=== PATIENT | female | born 1975 | race Asian ===

== ENCOUNTER 2016-08-25 21:00 | Inpatient (IN) | payer SELFPAY ==
[~2016-08-25] VITALS: Ht 162.6 cm; Wt 62.6 kg
[2016-08-25] MEDS ORDERED: LACTATED RINGERS 1,000 ML IV SCH (21:33)
[2016-08-25] MEDS ORDERED: OXYTOCIN 20 UNITS/LR PREMIX 1,000 ML IV SCH (21:35)
[2016-08-25] MEDS ORDERED: PROMETHAZINE 25 MG/ML VIAL IVP PRN (21:35)
[2016-08-25] MEDS ORDERED: NALBUPHINE HYDROCHLORIDE 10 MG/ML VIAL IVP PRN (21:35)
[2016-08-25] MEDS ORDERED: OXYTOCIN 10 UNITS/ML VIAL IM SCH (21:35)
[2016-08-25] MEDS ORDERED: ROPIVACAINE 0.2%/NS PREMIX 250 ML EPI ONE (22:24)
[2016-08-25] MEDS ORDERED: fentaNYL 0.05 MG/ML VIAL ONE (22:37)
[2016-08-25] MEDS ORDERED: OXYTOCIN 20 UNITS/LR PREMIX 1,000 ML IV ONE (22:50)
[2016-08-25] MEDS ORDERED: OXYTOCIN 10 UNITS/ML VIAL ONE (23:18)
[2016-08-25] MEDS ORDERED: METHYLERGONOVINE 0.2 MG/ML AMP IM PRN (23:40)
[2016-08-25] MEDS ORDERED: MEASLES, MUMPS, AND RUBELLA 1 VIAL SQVAC PRN (23:40)
[2016-08-25] MEDS ORDERED: TEMAZEPAM 15 MG CAP PO PRN (23:40)
[2016-08-25] MEDS ORDERED: HYDROcodone/APAP 5/325 MG 1 TAB TAB PO PRN (23:40)
[2016-08-25] MEDS ORDERED: WITCH HAZEL 40 PAD PACKAGE TP PRN (23:40)
[2016-08-25] MEDS ORDERED: IBUPROFEN 800 MG TAB PO PRN (23:40)
[2016-08-25] MEDS ORDERED: OXYTOCIN 10 UNITS/ML VIAL IM PRN (23:40)
[2016-08-25] MEDS ORDERED: oxyCODONE/APAP 5/325 MG 1 TAB TAB PO PRN (23:40)
[2016-08-25] MEDS ORDERED: BENZOCAINE/MENTHOL 20%-0.5% 60 GM CAN TP PRN (23:40)
--- NOTE | 2016-08-26 07:55 | NUR ---
PATIENT HAS BEEN SCREENED AND CATEGORIZED LOW NUTRITION RISK. PATIENT WILL BE SEEN WITHIN 7 DAYS OF ADMISSION. 09/01/[address]
[2016-08-26] MEDS ORDERED: DOCUSATE SOD/SENNA 50/8.6 MG 1 TAB PO SCH (21:00)
== END 2016-08-27 12:30 | disposition home or self-care (01) | DRG 775 ==
LOC: MLD 21:00 → MFCC 08-26 07:55
PROVIDERS: ADMIT Obstetrics & Gynecology; ATTEND Obstetrics & Gynecology
PROC: 10E0XZZ Delivery of Products of Conception, External Approach (ICD-10-PCS; principal; 2016-08-25)
PROC: 0W8NXZZ Division of Female Perineum, External Approach (ICD-10-PCS; 2016-08-25)
PROC: 00HU33Z Insertion of Infusion Device into Spinal Canal, Percutaneous Approach (ICD-10-PCS; 2016-08-25)
PROC: 3E0R3CZ (ICD-10-PCS; 2016-08-25)
DX: O75.89 Other specified complications of labor and delivery (principal); Z3A.38 38 weeks gestation of pregnancy; Z37.0 Single live birth; Z28.21 Immunization not carried out because of patient refusal; O09.523 Supervision of elderly multigravida, third trimester